=== PATIENT | male | born 1950 | race Caucasian/White ===

== ENCOUNTER 2016-12-19 11:41 | Emergency (ER) | payer OTHER ==
[~2016-12-19] VITALS: Ht 182.9 cm; Wt 86.2 kg
--- NOTE | ~2016-12-19 | EKG ---
[address] [address] ELECTROCARDIOGRAM REPORT Name: PRICILLA PURCELL [id number] Admission: 12/19/16 Attend Phys: Discharge: 12/19/16 Date of : 46 Report #: [id number] THIS REPORT FOR: //name// [facility] ED Test Date: 2016-12-19 Test Time: 12:24:21 Pat Name: PRICILLA PURCELL Department: Room: Gender: Supervisor Payroll: MZOOK : 1950 Requested By: Mari Cruz Order Number: [id number] MD: Gerald Weir Measurements Intervals Russell Rate: 75 P: 26 ND: 155 QRS: 44 QRSD: 84 T: 13 QT: 369 QTc: 413 Interpretive Statements Sinus rhythm No previous ECG available for comparison Electronically Signed On 12-19-2016 14:16:[address] [employer] by Gerald Weir [email or web address] <ELECTRONICALLY SIGNED> By: Gerald Weir MD 12/19/16 1416 1224 1224 Gerald Weir MD /SHELLEY
[~2016-12-19 11:41] MED LIST: AMBEREN PO; APAP/CODEINE ELI5 M1 OR; ATIVAN0.5 MG PO; CENTRUM SILVER1 EAC4 PO; CIALIS5 MG PO; HYCET 7.5 MG-3473 ML PO; LEVOTHROID75 MCG PO; LEVOTHYROXIN0.175 MG PO; PILOCARPINE HCL5 M1 PO; PRILOSEC 20 MG20 MG PO; SALAGEN5 MG PO; SIMVASTATIN40 MG PO; ZPAK PO
[2016-12-19] MEDS ORDERED: ZANTAC 150MG T150 MG PO (12:03)
[2016-12-19] MEDS ORDERED: VITAMIN C500 MG/15 PO (12:04)
[2016-12-19 12:20] LABS: HEMOGLOBIN 14.5 gm/dL (14.0-18.0); MCH 32.1 pg (26.0-34.0); MCHC 33.7 % (28.0-37.0); MCV 95.4 fL (80.0-100.0); RBC 4.51 mil/uL (4.50-6.00); RDW 13.6 % (10.5-14.5); WBC 5.2 thou/uL (4.0-11.0)
[2016-12-19 12:28] LABS: ANION GAP 11 mmol/L (7-16); BUN 12 mg/dL (7-18); CALCIUM 9.1 mg/dL (8.5-10.1); CHLORIDE 103 mmol/L (98-107); CO2 28 mmol/L (21-32); CREATININE 0.9 mg/dL (0.6-1.3); GLUCOSE 142 mg/dL (70-99); POTASSIUM 4.1 mmol/L (3.5-5.1); SODIUM 142 mmol/L (136-145)
[2016-12-19 12:36] LABS: ALBUMIN 3.8 g/dL (3.4-5.0); ALKALINE PHOSPHATASE 68 U/L (46-116); SGOT 34 U/L (15-37); SGPT 39 U/L (30-65); TOTAL BILIRUBIN 0.3 mg/dL (<0.1-1.0); TOTAL PROTEIN 7.2 g/dL (6.4-8.2); TROPONIN-I < 0.04 ng/mL (<0.04-0.07)
[2016-12-19] MEDS ORDERED: TESSALON PERLE100 MG PO (12:53)
[2016-12-19] MEDS ORDERED: AZITHROMYCIN 2250 MG PO (12:53)
[2016-12-19 13:41] VITALS: BP 160/104
== END 2016-12-19 13:41 | disposition home or self-care (01) ==
LOC: ER 11:41
PROVIDERS: Physician Assistant
DX: J40 Bronchitis, not specified as acute or chronic (principal); F41.9 Anxiety disorder, unspecified; I10 Essential (primary) hypertension; F10.99 Alcohol use, unspecified with unspecified alcohol-induced disorder

== ENCOUNTER → 2017-07-31 | Outpatient (CLI) | payer OTHER ==
[~2017-07-31] MED LIST changes: +AZITHROMYCIN 2250 MG PO; +TESSALON PERLE100 MG PO; +VITAMIN C500 MG/15 PO; +ZANTAC 150MG T150 MG PO
== END ==
LOC: RAD 15:52
DX: C09.9 Malignant neoplasm of tonsil, unspecified (principal); R05 Cough

== ENCOUNTER 2019-12-06 22:12 | Emergency (ER) | payer OTHER ==
[~2019-12-06] VITALS: Ht 185.4 cm; Wt 90.7 kg
[2019-12-07] MEDS ORDERED: SENNA-DOCUSATE1 EAC1 PO (01:17)
[2019-12-07] MEDS ORDERED: ALEVE220 MG PO (01:17)
[2019-12-07] MEDS ORDERED: NORCO 5-325 TA1 EAC1 PO (01:17)
[2019-12-07] MEDS ORDERED: NORFLEX100 MG PO (01:17)
[2019-12-07 01:34] VITALS: BP 104/65
== END 2019-12-07 01:38 | disposition home or self-care (01) ==
LOC: ER 22:12
DX: S39.012A Strain of muscle, fascia and tendon of lower back, initial encounter (principal); I10 Essential (primary) hypertension; F41.9 Anxiety disorder, unspecified; Z85.828 Personal history of other malignant neoplasm of skin; W01.0XXA Fall on same level from slipping, tripping and stumbling without subsequent striking against object, initial encounter; Y92.89 Other specified places as the place of occurrence of the external cause; Y93.89 Activity, other specified; Y99.8 Other external cause status

== ENCOUNTER → 2019-12-09 | Outpatient (CLI) | payer OTHER ==
[~2019-12-09] MED LIST changes: +ALEVE220 MG PO; +NORCO 5-325 TA1 EAC1 PO; +NORFLEX100 MG PO; +SENNA-DOCUSATE1 EAC1 PO
== END ==
LOC: RAD 15:13
DX: M47.816 Spondylosis without myelopathy or radiculopathy, lumbar region (principal); M12.88 Other specific arthropathies, not elsewhere classified, other specified site; I70.0 Atherosclerosis of aorta

== ENCOUNTER → 2020-08-03 | Outpatient (CLI) | payer OTHER | LOC: RAD 09:19 | PROVIDERS: ATTEND Nurse Practitioner | DX: J84.10 Pulmonary fibrosis, unspecified (principal) ==

== ENCOUNTER → 2020-08-17 | Outpatient (CLI) | payer OTHER | LOC: CAT 10:10 | PROVIDERS: ATTEND Nurse Practitioner | DX: J84.10 Pulmonary fibrosis, unspecified (principal); I25.10 Atherosclerotic heart disease of native coronary artery without angina pectoris; M25.78 Osteophyte, vertebrae; J98.4 Other disorders of lung ==

== ENCOUNTER → 2021-02-27 | Outpatient (CLI) | payer OTHER | LOC: RAD 15:54 | PROVIDERS: ATTEND Family Medicine | DX: R91.1 Solitary pulmonary nodule (principal); Z88.6 Allergy status to analgesic agent ==